=== PATIENT | male | born 1940 | race Caucasian/White ===

== ENCOUNTER → 2017-01-29 | Outpatient (CLI) | payer OTHER | LOC: FIMAGING 10:25 | PROVIDERS: ATTEND Family Medicine | DX: M70.70 Other bursitis of hip, unspecified hip (principal); M51.36 Other intervertebral disc degeneration, lumbar region ==

== ENCOUNTER 2018-01-08 08:25 | Emergency (ER) | payer OTHER ==
--- NOTE | 2018-01-08 08:53 | EDPHY ---
H & P Stated Complaint: L hip LLE pain Time Seen by Provider: 01/08/18 08:39 - Personal History Current Tetanus/Diphtheria Vaccine: Yes Current Tetanus Diphtheria and Acellular Pertussis (TDAP): Yes - Medical/Surgical History Hx Asthma: No Hx Chronic Respiratory Disease: No Hx Diabetes: No Hx Cardiac Disease: No Hx Renal Disease: Yes Hx Cirrhosis: No Hx Alcoholism: No Hx HIV/AIDS: No Hx Splenectomy or Spleen Trauma: No Other PMH: hyperlipidemia, CKD, mgus - Social History Smoking Status: Former smoker Constitutional: Initial Vital Signs Temperature (C) 36.5 C 01/08/18 08:30 Heart Rate 65 01/08/18 08:30 Respiratory Rate 16 01/08/18 08:30 Blood Pressure 127/63 H 01/08/18 08:30 O2 Sat (%) 97 01/08/18 08:30 O2 Delivery Mode Room Air Allergies/Adverse Reactions: No Known Allergies Allergy (Unverified 01/08/18 08:29) Home Medications: Medication Instructions Recorded Aspirin 01/30/09 Ranitidine HCl 01/08/18 Simvastatin 01/08/18 Sonata 01/08/18 methylPREDNISolone [Medrol Dose 1 each PO AD #1 ea 01/08/18 [place]] oxyCODONE IR [Oxycodone Ir (*)] 5 - 10 mg PO Q6 PRN #20 tab 01/08/18 traMADol 01/08/18 Medical Decision Making - Diagnostics Imaging Results: Imaging Impressions Lumbar Spine MRI 01/08/18 08:52 Impression: 1. L5-S1: Moderate left lateral recess stenosis, mild central canal stenosis, and mild to moderate left neural foraminal stenosis secondary to left paramedian disk herniation, extrusion, causing mass effect on the left L5 and left S1 nerve roots with dorsal displacement of left S1 nerve root. 2. Please see above findings at specific disk levels. Findings and recommendations discussed with Emergency Department physician, Juan Zhu MD at 10:30 hours, 01/08/2018. Final report concurs with initial preliminary interpretation. Imaging: Discussed imaging studies w/ rotary driller prospecting Radiologist ED Course/Re-evaluation: CHIEF COMPLAINT: Left-sided back pain HISTORY OF PRESENT ILLNESS: This patient is a 77 year old male with history of hyperlipidemia and chronic kidney disease. For several days, he has noted some left-sided lumbar back pain , particularly over his left buttock. Yesterday, he noted some increased pain while running, especially when his left foot impacted the ground. This morning, he woke with increased pain. He rates this at 8 or 9/10 severity. He has been unable to get comfortable in any position. The pain radiates down his left leg to his calf. He endorses associated leg weakness and numbness in his toes. He endorses some mild nausea but has not vomited. He took tramadol at home and initially did not feel much relief. Currently, he is feeling slightly better. He denies fever, chest pain, shortness of breath, headache, neck pain, diarrhea , melena, urinary complaints, or other associated symptoms. REVIEW OF SYSTEMS: A comprehensive 10 system review of systems is otherwise negative aside from elements mentioned in the history of present illness and medical decision making. PHYSICAL EXAM: HR, BP, O2 Sat, RR. Temp noted General Appearance: Alert, well hydrated, appropriate, and non-toxic appearing. Head: Atraumatic without scalp tenderness or obvious injury Eyes: Pupils equal, round, reactive to light and accommodation, EOMI, no trauma , no injection. Ears: Clear bilaterally, no perforation, normal landmarks Nose: Atraumatic, no rhinorrhea, clear. Throat: There is no erythema or exudates, no lesions, normal tonsils, mucus membranes moist. Neck: Supple, 2+ carotid upstroke, nontender, no lymphadenopathy. Respiratory: No retractions, no distress, no wheezes, and no accessory muscle use. Lungs are clear to auscultation bilaterally. Cardiovascular: Regular rate and rhythm, no murmurs, rubs, or gallops. Bilateral carotid, radial, dorsalis pedis, and posterior tibial pulses intact. Good capillary refill all extremities. Gastrointestinal: Abdomen is soft, nontender, non-distended, no masses, no rebound, no guarding, no peritoneal signs. Musculoskeletal: Normal active ROM of all extremities, atraumatic. Neurological: Alert, appropriate, and interactive. [] Skin: No rashes, good turgor, no nodules on palpation. Past medical history: Hyperlipidemia. Chronic kidney disease. Past surgical history: Noncontributory. Family history: Noncontributory. Social history: Retired. Lives in [place]. Significant other at bedside. Does not abuse tobacco, drugs, or alcohol. DIFFERENTIAL DIAGNOSIS: The differential diagnosis for the patient's back pain included but was not limited to musculoskeletal pain, epidural abscess, herniated disk, spinal fracture, and intra-abdominal causes including urinary system. MEDICAL DECISION MAKING: This 77-year-old male presents with left-sided back pain and left radiculopathy with associated weakness and sensory deficit. Plan for noncontrast MRI of the lumbar spine for further evaluation to rule out disc herniation or other acute processes. 10:[address] Ventura, radiologist. MRI shows large left paramedian disc bulge at L5-S1. See radiologist report above for details. 10:50 Reassessed. Discussed imaging results and follow up with the patient and his significant other in detail. Plan to discharge home in good condition with referral to neurosurgery and [facility]. Prescription for oxycodone and Medrol Dosepak provided. The patient plans to go on a hiking trip in [place] this weekend. I encouraged him to avoid activities that provoke symptoms but that he may remain active as tolerated. Return precautions discussed. He is comfortable with this plan. Departure - Departure Disposition: Home, Routine, Self-Care Clinical Impression: Herniation of intervertebral disc between L5 and S1, Back pain with left-sided radiculopathy Condition: Good Instructions: Lumbar Disc Herniation (ED), Lumbar Radiculopathy (ED) Additional Instructions: 1. Take Medrol Dosepak as prescribed. 2. Take oxycodone as prescribed as needed for severe pain. You may also take ibuprofen or Tylenol as directed below. 3. Follow up with a habilitation training specialist for further evaluation within one week. We have referred you to Dr. Benavides and to [facility]. 4. Return to the emergency department for severe pain, fever, numbness, difficulty walking, change in location or nature of pain or other concerns. 5. You can stay active, but please avoid any activity that exacerbates your symptoms or cause pain until you follow up with the specialist. Adult Pain & Fever Control: We recommend Acetaminophen (Tylenol) and Ibuprofen (Motrin,Advil) for pain and fever control. When fever is high or pain severe, both drugs can be used at the same time, but at different intervals. Please note the time differences. Your dose is: Acetaminophen 650mg every 4 to 6 hours Ibuprofen 600mg every 6-8 hours with food Note: do not take Acetaminophen with Hydrocodone (Vicodin, Lortab) or Oxycodone (Percocet). These medications also contain Acetaminophen. No more than 3000mg of Acetaminophen should be taken in 24 hours (for an adult). Referrals: NORA KENDRICK [Primary Care Provider] - As per Instructions Cory Dupont [Outside] - As per Instructions Troy Benavides MD [Medical Doctor] - As per Instructions Prescriptions: methylPREDNISolone [Medrol Dose [place]] 1 each PO AD #1 ea oxyCODONE IR [Oxycodone Ir (*)] 5 - 10 mg PO Q6 PRN #20 tab PRN Reason: Pain, Severe Report Scribed for: Juan Zhu Report Scribed by: Brooke Brenner Date of Report: 01/08/18 Time of Report: 10:27
[2018-01-08 11:26] VITALS: BP 128/86
== END 2018-01-08 11:26 | disposition home or self-care (01) ==
DX: M48.07 Spinal stenosis, lumbosacral region (principal); M51.87 Other intervertebral disc disorders, lumbosacral region; E78.5 Hyperlipidemia, unspecified; N18.9 Chronic kidney disease, unspecified; Z87.891 Personal history of nicotine dependence

== ENCOUNTER 2018-04-01 18:02 | Emergency (ER) | payer OTHER ==
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
[2018-04-01 18:37] VITALS: BP 146/76
== END 2018-04-01 18:54 | disposition home or self-care (01) ==
LOC: EDUNIT#
DX: S00.31XA Abrasion of nose, initial encounter (principal); V09.29XA Pedestrian injured in traffic accident involving other motor vehicles, initial encounter; Y92.9 Unspecified place or not applicable; Y93.9 Activity, unspecified; Y99.9 Unspecified external cause status
CPT/HCPCS: G0390